=== PATIENT | male | born 1985 | race Caucasian/White ===

== ENCOUNTER 2020-10-17 10:00 | Emergency (ER) | payer OTHER ==
[~2020-10-17] VITALS: Ht 177.8 cm; Wt 114.8 kg
[~2020-10-17 10:00] MED LIST: IBUP800 PO; MECL25 PO; PROM25 PO
[2020-10-17 11:55] LABS: Calcium, Ionized (POC) 1.07 mmol/L (1.10-1.46); Chloride (POC) 107 mmol/L (98-108); Creatinine (POC) 0.8 mg/dL (0.8-1.3); Glucose (ISTAT POC) 91 mg/dL (70-99); Hemoglobin (POC) 12.9 g/dL (13.5-17.5); Potassium (POC) 3.9 mmol/L (3.5-5.5); Sodium (POC) 141 mmol/L (135-148); Total CO2 (POC) 26 mmol/L (21-32)
[2020-10-17] MEDS ORDERED: ONDA4ODT MM (12:23)
== END 2020-10-17 12:27 | disposition home or self-care (01) ==
LOC: ER 10:00
PROVIDERS: Physician Assistant
DX: E86.0 Dehydration (principal); Z91.013 Allergy to seafood; Z91.041 Radiographic dye allergy status; X30.XXXA Exposure to excessive natural heat, initial encounter
CPT/HCPCS: 80047; 85014; 96374; 99283-25; J2405; J7030

== ENCOUNTER 2021-10-02 14:49 | Emergency (ER) | payer OTHER ==
[~2021-10-02] VITALS: Ht 177.8 cm; Wt 111.1 kg
[~2021-10-02 14:49] MED LIST changes: +ONDA4ODT MM
[2021-10-02] MEDS ORDERED: SPIR25 (15:31)
[2021-10-02] MEDS ORDERED: CLIMARA1 EACH (15:32)
== END 2021-10-02 17:11 | disposition home or self-care (01) ==
LOC: ER 14:49
DX: S86.112A Strain of other muscle(s) and tendon(s) of posterior muscle group at lower leg level, left leg, initial encounter (principal); Z91.041 Radiographic dye allergy status; Z91.013 Allergy to seafood; Z79.899 Other long term (current) drug therapy; X58.XXXA Exposure to other specified factors, initial encounter; Y92.9 Unspecified place or not applicable
CPT/HCPCS: 76882; 99283-25; A9270